=== PATIENT | female | born 1940 | race Caucasian/White ===

== ENCOUNTER 2017-04-09 14:05 | Emergency (ER) | payer MEDICARE ==
[~2017-04-09 14:05] MED LIST: ASPI-1181 PO; CARV25TA PO; LEVO125T11 PO; OMEP20CA10 PO; PROB500T26 PO; SIMV20TA6 PO; VALS320T15 PO; VERA360C2 PO
[2017-04-09] MEDS ORDERED: SODIUM CHLORIDE 0.9% 1000ML 1,000 ML IV ONE (14:20)
[2017-04-09 14:27] LABS: BASOPHILS % (AUTO) 0.4 % (0.0-5.0); EOSINOPHILS % (AUTO) 1.7 % (0.0-8.0); HEMATOCRIT 36.3 % (36-48); LYMPHOCYTES % (AUTO) 17.3 % (21.0-51.0); MEAN CORPUSCULAR HEMOGLOBIN 29.5 pg (27.0-33.0); MEAN CORPUSCULAR HGB CONC 34.3 g/dL (32.0-36.0); MEAN CORPUSCULAR VOLUME 85.9 fL (79-99); NEUTROPHILS % (AUTO) 73.6 % (40.0-77.0); PLATELET COUNT (AUTO) 232 K/uL (130-400); RED BLOOD CELL COUNT(AUTO) 4.22 MIL/uL (4.00-5.50); RED CELL DISTRIBUTION WIDTH 14.2 % (11.0-15.5); WHITE BLOOD COUNT (AUTO) 5.8 K/uL (4.8-10.8)
[2017-04-09 14:37] LABS: CREATININE 1.8 mg/dL (0.5-1.5); POTASSIUM 3.6 mmol/L (3.5-5.1)
[2017-04-09 14:38] LABS: INR 1.02 (0.85-1.15); PARTIAL THROMBOPLASTIN TIME 25.2 SEC (26.3-35.5); PROTHROMBIN TIME 10.7 SEC (9.6-11.6)
[2017-04-09 14:51] LABS: ALBUMIN 3.8 g/dL (3.5-5.0); BILIRUBIN,TOTAL 0.4 mg/dL (0.2-1.0); CREATINE KINASE MB 1.2 ng/mL (0.5-3.6); TOTAL PROTEIN, SERUM 7.5 g/dL (6.0-8.3)
[2017-04-09 14:56] LABS: RAPID GROUP A STREP POSITIVE (NEGATIVE)
[2017-04-09] MEDS ORDERED: CEFTRIAXONE SODIUM 1 GM ONE (14:59)
[2017-04-09] MEDS ORDERED: SODIUM CHLORIDE 0.9% 50 ML IV ONE (14:59)
[2017-04-09 15:36] LABS: APPEARANCE,URINE Cloudy (CLEAR); BILIRUBIN,URINE Negative (NEGATIVE); COLOR,URINE Yellow (YELLOW); GLUCOSE, URINE (UA) Negative (NEGATIVE); KETONES,URINE Negative (NEGATIVE); LEUKOCYTE ESTERASE ,URINE Large (NEGATIVE); NITRATE,URINE Negative (NEGATIVE); OCCULT BLOOD,URINE Negative (NEGATIVE); PROTEIN,URINE POS 2+ (NEGATIVE); UROBILINOGEN,URINE 0.2 mg/dL (0.2-1.0)
[2017-04-09 15:59] LABS: BACTERIA,URINE Rare /HPF (None Seen); RBC,URINE None Seen /HPF (0-1); RENAL EPITHELIAL CELLS,URINE Few /LPF (None Seen); TRANSITIONAL EPI CELLS,URINE Few /LPF (None Seen)
== END 2017-04-09 17:26 | disposition home or self-care (01) ==
LOC: EDH 14:05
DX: R55 Syncope and collapse (principal); E86.0 Dehydration; N39.0 Urinary tract infection, site not specified; F43.9 Reaction to severe stress, unspecified; I10 Essential (primary) hypertension; E78.5 Hyperlipidemia, unspecified; E07.9 Disorder of thyroid, unspecified; Z88.6 Allergy status to analgesic agent; Z79.899 Other long term (current) drug therapy; Z90.710 Acquired absence of both cervix and uterus
CPT/HCPCS: 36415; 70450; 71045; 80053; 81001; 82550; 82553; 83605; 83874; 84484 ×2; 85025; 85610; 85730; 87804 ×2; 87880; 93005; 94761; 96374; 99285; J0696; J7030; 96372

== ENCOUNTER → 2019-11-14 | Outpatient (CLI) | payer MEDICARE ==
[~2019-11-14] MED LIST changes: -ASPI-1181 PO; +ASPI-1443 PO; -OMEP20CA10 PO; +OMEP20CA12 PO; +SIMV-43 PO; -SIMV20TA6 PO; -VALS320T15 PO; +VALS320T16 PO
== END | disposition home or self-care (01) ==
LOC: SHCH 08:39
PROVIDERS: ATTEND Internal Medicine Cardiovascular Disease
DX: I51.7 Cardiomegaly (principal); I34.0 Nonrheumatic mitral (valve) insufficiency
CPT/HCPCS: 93306; 93356

== ENCOUNTER 2024-09-23 15:48 | Emergency (ER) | payer MEDICARE, OTHER ==
[~2024-09-23] VITALS: Ht 152.4 cm; Wt 77.1 kg
--- NOTE | 2024-09-23 17:00 | HMCIMG ---
CLINICAL INFORMATION Fall COMPARISON None. TECHNIQUE Volumetric helical CT images of the head without contrast FINDINGS Midline shift: None. Intracranial Hemorrhage: None. Extra axial spaces: Normal. Ventricular system: Mild lateral and third ventriculomegaly, commensurate with degree of parenchymal volume loss. Basal cisterns: Normal. Cerebral parenchyma: Scattered regions of hypoattenuation within the cerebral deep and periventricular white matter compatible with chronic small vessel disease. Cerebellum: Normal. Brainstem: Normal. Skull: Normal. Vascular system: Normal. Paranasal sinuses: Normal. Mastoid air cells: Opacification right mastoid air cells with hyperostosis. Visualized Orbits: Normal. Visualized upper cervical spine: Normal. Skull base: Normal. Soft Tissues: Normal. IMPRESSION No acute intracranial abnormality. Chronic small vessel disease. Chronic right mastoid effusion. /[place]
--- NOTE | 2024-09-23 17:02 | HMCIMG ---
CLINICAL INFORMATION Fall, neck pain COMPARISON None. TECHNIQUE Volumetric helical CT images of the cervical spine without contrast FINDINGS Vertebral Body Height: Superior endplate irregularity in the T3 vertebral body, chronic appearing. Cervical vertebral heights are maintained. Alignment: Normal. Disc spaces: Moderate disc height at C5-C6 and C6-C7, uncovertebral spurring and anterior endplate osteophytes. Posterior Elements: Intact. Multilevel facet arthrosis. Soft Tissues: Atherosclerotic vascular calcifications in the carotid arteries and partially imaged great vessels. Other: Peripherally calcified right thyroid nodule. Craniocervical junction: Normal. Posterior fossa: Visualized contents unremarkable. IMPRESSION No acute fracture or traumatic subluxation of the cervical spine. Moderate cervical spondylosis at C5-C6 and C6-C7. /[place]
[2024-09-23 17:06] LABS: IMMATURE GRANULOCYTE ABSOLUTE 0.01 K/uL (0-1); NUCLEATED RED BLOOD CELLS 0.0 % (0.0-0.19); PLATELET COUNT (AUTO) 178 K/uL (130-400); RED BLOOD CELL COUNT(AUTO) 4.41 MIL/uL (4.00-5.50); RED CELL DISTRIBUTION WIDTH 14.6 % (11.0-15.5); WHITE BLOOD COUNT (AUTO) 7.3 K/uL (4.8-10.8)
--- NOTE | 2024-09-23 17:08 | HMCIMG ---
EXAM: Chest, abdomen and pelvis CT without contrast. HISTORY: Fall TECHNIQUE: Axial images through the chest, abdomen and pelvis were obtained without intravenous contrast. Coronal and sagittal reformats were performed. This study was performed to obtain a diagnostic image quality scan with patient dose as low as reasonably achievable. COMPARISON: None. FINDINGS: Diffuse Lung Findings and Airways: Mild subpleural reticulation. Occasional 2 to 3 mm solid nodule. No consolidation. Mild diffuse bronchial wall thickening. Pleura: No effusion or pneumothorax. Heart and pericardium: Coronary artery calcifications. Mediastinum and karsten: No adenopathy. Lower neck: Normal. Chest Wall: Normal. Liver: Normal. Gallbladder: Cholelithiasis. No wall thickening. Biliary System: Non-dilated. Pancreas: Normal. Spleen: Normal. Adrenals: Normal. Kidneys: Simple left renal cyst measuring 2.6 cm. No hydronephrosis. Ureters: Normal. Bladder: Normal. Pelvis: Hysterectomy changes. Stomach: Moderate hiatal hernia. Duodenum: Normal. Small Bowel: Normal. Colon: Normal. Appendix: Not seen. Lymph Nodes: No lymphadenopathy. Peritoneum: No ascites or free air. Retroperitoneum: Normal. Vessels: Normal. Abdominal Wall: Normal. Bones: Age-indeterminate anterosuperior compression deformity at L5 with approximately 10% height loss.. Grade 1 anterolisthesis at L4-L5 and L5-S1, related to severe facet arthrosis. IMPRESSION: Age-indeterminate anterosuperior compression deformity at L5 with approximately 10% height loss. Correlate for point tenderness. Otherwise, no acute traumatic findings in the chest, abdomen or pelvis. Moderate hiatal hernia. Cholelithiasis. /[place]
[2024-09-23 17:11] LABS: CREATININE 1.0 mg/dL (0.5-1.0); GLOMERULAR FILTR. RATE CALC 56.0 mL/min (>90); GLUCOSE,RANDOM 127.0 mg/dL (70-105); SODIUM SERUM 142.0 mmol/L (136-145); UREA NITROGEN, BLOOD 27.0 mg/dL (7-18)
[2024-09-23 17:14] LABS: INR 0.99 (0.85-1.15)
--- NOTE | 2024-09-23 18:30 | ERN ---
ED Note History of Present Illness Stated Complaint: FALL Chief Complaint: Mechanical Fall Time Seen by MD: 15:50 Dictation: 84-year-old female ground level fall with a bump to back of the head on right side and right hip pain able to ambulate no change in mental status, patient had assisted living and healthcare worker with her at the bedside Allergies: Coded Allergies: codeine (Unverified Allergy, Unknown, 07/16/16) Home Meds Active Scripts Simvastatin (Simvastatin) 20 Mg Tablet, 20 MG PO HS, #30 TAB 3 Refills Prov:Suhas STEIN II, MD 07/20/16 Reported Medications Verapamil HCl (Verapamil HCl) 360 Mg Cap24h.pel, 360 MG PO HS, APPL 07/16/16 Aspirin (Aspirin EC) 81 Mg Tablet.dr, 81 MG PO DAILY, TAB 07/16/16 Carvedilol (Carvedilol) 25 Mg Tablet, 25 MG PO DAILY, TAB 07/16/16 Probenecid (Probenecid) 500 Mg Tablet, 500 MG PO BID, TAB 07/16/16 Valsartan (Valsartan) 320 Mg Tablet, 320 MG PO DAILY, TAB 07/16/16 Levothyroxine Sodium (Levothyroxine Sodium) 125 Mcg Tablet, 125 MCG PO DAILY, TAB 07/16/16 Omeprazole (Omeprazole) 20 Mg Capsule.dr, 20 MG PO DAILY, CAP 07/16/16 Past Medical History Past Medical History: Dementia, Hypertension Additional Past Medical Hx: ALZHEIMER'S, HYPOTHYROID Surgical History: Unknown Review of System Dictation Constitutional: Negative for fever,chills, and weight loss Eyes: Negative for injury, pain,redness, and discharge ENT: Negative for injury,pain or swelling Cardiovascular: Negative for chest pain, palpitations, and edema Respiratory: Negative for shortness of breath, cough, and wheezing, Abdomen/GI: Negative for abdominal pain, nausea, vomiting, diarrhea, and constipation Back: Negative for injury and pain : Negative for injury, bleeding and discharge MS/Extremity: Negative for injury and deformity Skin: Negative for rash, and discoloration Neuro: At baseline Initial Vital Sign VS Vital Signs Date Time Temp Pulse Resp B/P (MAP) Pulse Ox O2 Delivery O2 Flow Rate FiO2 09/23/24 15:49 98.2 68 18 140/65 95 Room Air 09/23/24 15:59 0 21 Physical Exam Dictation General: awake, alert, NAD Head/Face: Normocephalic, atraumatic Eyes: PERRL, EOMI, vision at baseline ENT: oral cavity clear, TMs clear, no signs of infection Neck: Trachea midline, supple, no nuchal rigidity Cardiovascular: RRR, normal S1/S2, No MRGs, no JVD Respiratory: CTAB, no respiratory distress, No rales or wheezes Abdomen: Soft, non-tender, non-distended, normal bowel sounds, no guarding or rebound. Skin: Warm, dry, normal turgor, no rash MS/Extremity: Pulses equal, no cyanosis, neurovascular intact, FROM Neuro: at baseline with dementia, GCS 15, strength 5/5, CN 2-12 intact Results (Laboratory/Radiology) Laboratory/Radiology Laboratory Tests Test 09/23/24 16:50 White Blood Count 7.3 K/uL (4.8-10.8) Red Blood Count 4.41 MIL/uL (4.00-5.50) Hemoglobin 12.6 g/dL (12.0-16.0) Hematocrit 40.0 % (36-48) Mean Corpuscular Volume 90.7 fL (79-99) Mean Corpuscular Hemoglobin 28.6 pg (27.0-33.0) Mean Corpuscular Hemoglobin Concent 31.5 g/dL (32.0-36.0) L Red Cell Distribution Width 14.6 % (11.0-15.5) Platelet Count 178 K/uL (130-400) Mean Platelet Volume 11.4 fL (7.5-10.5) H Immature Granulocyte % (Auto) 0.1 % (0-1) Neutrophils (%) (Auto) 75.5 % (40.0-77.0) Lymphocytes (%) (Auto) 16.0 % (21.0-51.0) L Monocytes (%) (Auto) 5.6 % (3.0-13.0) Eosinophils (%) (Auto) 2.3 % (0.0-8.0) Basophils (%) (Auto) 0.5 % (0.0-5.0) Neutrophils # (Auto) 5.5 K/uL (1.8-7.7) Lymphocytes # (Auto) 1.2 K/uL (1.0-4.8) Monocytes # (Auto) 0.4 K/uL (0.1-1.0) Eosinophils # (Auto) 0.17 K/uL (0.00-0.70) Basophils # (Auto) 0.04 K/uL (0.00-0.20) Absolute Immature Granulocyte (auto 0.01 K/uL (0-1) Nucleated Red Blood Cells 0.0 % (0.0-0.19) Prothrombin Time 10.5 SEC (9.6-11.6) Prothromb Time International Ratio 0.99 (0.85-1.15) Activated Partial Thromboplast Time 28.2 SEC (26.3-35.5) Sodium Level 142 mmol/L (136-145) Potassium Level 3.7 mmol/L (3.5-5.1) Chloride Level 106 mmol/L (101-111) Carbon Dioxide Level 28 mmol/L (21-32) Blood Urea Nitrogen 27 mg/dL (7-18) H Creatinine 1.0 mg/dL (0.5-1.0) Glomerular Filtration Rate Calc 56 mL/min (>90) Random Glucose 127 mg/dL (70-105) H Total Calcium 9.9 mg/dL (8.5-10.1) Troponin I High Sensitivity 17 ng/L (4-50) Labs Reviewed?: Yes ED Course ED Course Orders Procedure Category Date Status Time Ct Head/Brain W/O CT 09/23/24 Resulted Contrast 16:03 Ct Cervical Spine W/O CT 09/23/24 Resulted Contrast 16:03 12 Lead Ekg Tracing- EKG 09/23/24 Logged Technical 16:04 Basic Metabolic Panel LAB 09/23/24 Complete 16:04 Cbc With Differential LAB 09/23/24 Complete 16:04 Pt And Ptt LAB 09/23/24 Complete 16:04 Troponin I High LAB 09/23/24 Complete Sensitivity 16:04 Ct Chest/Abd/Pelv W/O CT 09/23/24 Resulted Contrast 16:03 Vital Signs Date Time Temp Pulse Resp B/P (MAP) Pulse Ox O2 Delivery O2 Flow Rate FiO2 09/23/24 15:59 98.2 78 16 175/74 98 Room Air* 0 21 09/23/24 15:49 98.2 68 18 140/65 95 Room Air Medical Decision Making MDM MDM: Differential diagnosis: Rationale: Tests considered and ordered secondary to shared decision making include: Previous outside records reviewed: Old ER visits. Risk of complication and/or morbidity or mortality of patient management: None Medications-Per medication reconciliation Need for hospitalization: Patient does not meet criteria for hospitalization. Need for emergency major/minor surgery: No There are no social concerns with this patient. Prescription drug management Prescriptions will include symptomatic care Patient's prior external medical records from other ER visits were reviewed by me as indicated. Prior testing and results from previous visits were reviewed. Prior tests were taken into account with medical decision making and resource utilization, independent historian/historians were used to obtain complete med ica history. I independently interpreted the test that were performed, results were reviewed by me and considered findings on radiology if ordered. Medical management and examination interpretation discussions were had by me with other qualified healthcare professionals as indicated for the patient's care. 84 y/o F with fall, CTs negative, stable for discharge. DX & DISP Disposition: Discharge Departure Impression: Primary Impression: Fall Additional Impressions: Scalp contusion, Contusion of hip, right Condition: Stable Referrals: EVELYN AMBROSE (PCP) TASHA JAMES MD Sep 23, 2024 18:30
[2024-09-23 18:40] VITALS: BP 165/70; PULSE 75; RESP 16; TEMP 98.3; O2SAT 98
--- NOTE | 2024-09-24 07:26 | EKG ---
[facility] Test Date: 2024-09-23 Test Time: 16:09:21 Pat Name: MALU JACOBO Department: [facility] Room: Gender: Female Document Management Specialist: [id number] : [id number] Requested By: TASHA JAMES Order Number: [id number] Reading MD: Measurements Intervals Duncan Rate: 85 P: 0 NC: 0 QRS: -13 QRSD: 98 T: 122 QT: 405 QTc: 483 Interpretive Statements Atrial fibrillation Nonspecific T abnormalities, lateral leads No previous ECG available for comparison Please click the below link to view image of tracing.
== END 2024-09-23 18:43 | disposition home or self-care (01) ==
LOC: EDH 15:48
DX: S00.03XA Contusion of scalp, initial encounter (principal); S70.01XA Contusion of right hip, initial encounter; F02.80 Dementia in other diseases classified elsewhere, unspecified severity, without behavioral disturbance, psychotic disturbance, mood disturbance, and anxiety; I10 Essential (primary) hypertension; E03.9 Hypothyroidism, unspecified; Z79.82 Long term (current) use of aspirin; Z79.890 Hormone replacement therapy; Z79.899 Other long term (current) drug therapy; Z88.5 Allergy status to narcotic agent; W18.39XA Other fall on same level, initial encounter; Y93.89 Activity, other specified; Y92.89 Other specified places as the place of occurrence of the external cause; Y99.8 Other external cause status
CPT/HCPCS: 36415; 70450; 71250; 72125; 74176; 80048; 84484; 85025; 85610; 85730; 93005; 99284